=== PATIENT | female | born 1955 | race Caucasian/White ===

== ENCOUNTER 2023-02-02 15:26 | Emergency (ER) | payer OTHER ==
[~2023-02-02] VITALS: Ht 165.1 cm; Wt 88.5 kg
[2023-02-02 15:28] VITALS: BP_SYST 114; PULSE 78; RESP 20; TEMP 98.1; O2SAT 95
[2023-02-02] MEDS ORDERED: MORPHINE 4 MG INJ. 4 MG/ML VIAL IVP ONE (16:00)
[2023-02-02] MEDS ORDERED: HYDR-3917 PO (17:27)
[2023-02-02] MEDS ORDERED: HYDROmorphone 1 MG/ML INJ. CARTRIDGE IVP ONE (17:45)
[2023-02-02 17:56] VITALS: BP_SYST 106; PULSE 64; RESP 20; TEMP 97.8; O2SAT 95
== END 2023-02-02 17:51 | disposition home or self-care (01) ==
LOC: SED 15:26
DX: S52.121A Displaced fracture of head of right radius, initial encounter for closed fracture (principal); Z79.899 Other long term (current) drug therapy; W01.198A Fall on same level from slipping, tripping and stumbling with subsequent striking against other object, initial encounter; Y93.89 Activity, other specified; Y92.89 Other specified places as the place of occurrence of the external cause; Y99.8 Other external cause status
CPT/HCPCS: 99283; 96374; 73080; J2270; J1170